=== PATIENT | female | born 1960 | race African-American/Black ===

== ENCOUNTER 2018-08-26 14:44 | Emergency (ER) | payer BC ==
[~2018-08-26] VITALS: Ht 170.2 cm; Wt 65.8 kg
--- NOTE | 2018-08-26 15:12 | NUR ---
PT A/OX4, PRESENTS TO THE ER C/O L KNEE PAIN S/P INJURY AT 1100 THIS AM. PT REPORTS SHE LOST HER BALANCE WHILE HOLDING ONTO A STOOL W/ WHEELS AND L KNEE PAIN BEGAN AFTER ATTEMPTING TO MAINTAIN HER BALANCE. PT DENIES FALL, LOC, HEAD INJURY, WEAKNESS, DIZZINESS. VSS. PT REPORTS L KNEE PAIN THAT IS PROVOKED UPON MOVEMENT, SHARP IN QUALITY, DOES NOT RADIATE, 8/10, CONSTANT. NO DEFORMITY NOTED TO THE EXTREMITY. PT DENIES C/P, SOB, N/V/D, DIZZINESS, HEADACHE.
[2018-08-26] MEDS ORDERED: KETOROLAC TROMETHAMINE 30 MG INJ ONE (15:40)
[2018-08-26] MEDS ORDERED: KETOROLAC TROMETHAMINE 30 MG INJ IM ONE (15:45)
--- NOTE | 2018-08-26 16:20 | NUR ---
JAI REYES AT BEDSIDE FOR PT UPDATE.
[2018-08-26 16:41] VITALS: BP 118/66
--- NOTE | 2018-08-26 16:41 | NUR ---
Patient discharged to home in stable conditon. Written and verbal after care instructions given. Patient verbalizes understanding of instructions. ALL BELONGINGS W/ PT. PT SELF-AMBULATED W/O DIFFICULTY.
== END 2018-08-26 16:42 | disposition home or self-care (01) ==
LOC: ER 14:44
DX: M25.462 Effusion, left knee (principal); W01.198A Fall on same level from slipping, tripping and stumbling with subsequent striking against other object, initial encounter; Y93.89 Activity, other specified; Y92.89 Other specified places as the place of occurrence of the external cause; Y99.8 Other external cause status
CPT/HCPCS: 29505; 73564; 96372; 99283; J1885; A4663